=== PATIENT | male | born 1985 | race Caucasian/White ===

== ENCOUNTER 2018-06-06 20:35 | Emergency (ER) | payer SELFPAY ==
[2018-06-06 20:36] VITALS: BP 130/79; PULSE 90; RESP 18; TEMP 36.7; O2SAT 97; BMI 28.8
--- NOTE | 2018-06-06 22:23 | ED.RN ---
LEFT WITHOUT BEING SEEN
== END 2018-06-06 22:00 | disposition left against medical advice (07) ==
LOC: ED 22:31
PROVIDERS: Emergency Provider Emergency Medicine
DX: F11.90 Opioid use, unspecified, uncomplicated (principal)

== ENCOUNTER 2018-06-07 16:41 | Inpatient (IN) | payer MEDICAID, SELFPAY ==
[2018-06-07 16:59] VITALS: BP 130/80; PULSE 81; RESP 16; TEMP 36.7; O2SAT 98
[2018-06-07 17:05] VITALS: BMI 26.2
[2018-06-07 17:07] VITALS: BMI 26.2
[2018-06-07 17:15] VITALS: BP 130/80; PULSE 81; RESP 16; TEMP 36.7
--- NOTE | 2018-06-07 17:32 | HP.PCM_ITS ---
Problem List (1) Heroin withdrawal Status: Acute History of Present Illness Date of Admission: 06/07/18 Chief Complaint: Myalgias, lacrimation, abdominal cramps. The patient is a 32 year old M presenting seeking assistance with opiate withdrawal. Patient's last use of heroin was the 6, in the morning. Patient smokes or free bases heroin. Since his last use, he is been abdominal cramps, diffuse myalgias, yawning, lacrimation, nausea. He has been using heroin for 8 months, never injecting. He is never attempted to quit heroin before. He states that he uses methamphetamines, also smoking, intermittently and yesterday as he was told by someone that would help with his heroin sick. It did not. [] Past Medical History Allergies grass pollen Allergy (Verified 06/07/18 17:05) Other Home Medications: Ambulatory Orders Medication Instructions Recorded NK 06/07/18 Psychiatric History: Anxiety Smoking Status: Current every day smoker Tobacco Use: Cigarettes Alcohol: None Drugs: Cocaine - Rare, Heroin - Daily, Marijuana - Almost daily, - - Rare methamphetamines - *Family History Maternal History Items: - - No medical problems Review of Systems Constitutional: Reports: Chills. Denies: Anorexia, Fever, Night Sweats, Malaise, Weakness Eyes: Denies: Blurred vision, Double vision HEENT: Denies: Head Aches, Sinus Congestion, Sinus Drainage Cardiovascular: Denies: Chest Pain, Palpitations Respiratory: Denies: Cough, Shortness of breath at rest, Sputum production Gastrointestinal: Denies: Abdominal Pain, Nausea, Vomiting Genitourinary: Denies: Dysuria Musculoskeletal: Reports: - - Diffuse myalgias. Denies: Joint Pain, Joint Tenderness Skin: Denies: Rash, Wounds Neurological: Denies: Blurred vision, Double vision, Focal weakness, Numbness, Tingling Psychiatric: Reports: Anxiety. Denies: Depression Hematologic/ Lymphatic: Denies: Easy Bruising, Easy Bleeding, Hx of blood clot Comment: A 10 point review of systems were negative except as mentioned in the history of present illness and the other review of systems. VTE Information - Inpt Only VTE Present on Admission: No VTE Mechan Device Prophylaxis: None VTE Pharm Prophylaxis ordered?: No Reason prophylaxis not ordered:: Treatment Not Indicated Patient Problems: Active and Suspected Problems Heroin withdrawal (Acute) - Physical Exam General: Alert, Cooperative, No apparent distress HEENT: Atraumatic, Normocephalic Oral: Moist Mucosa, No Gingival or Mucosal Lesions/ Ulcerations Neck: No Nodes, Thyroid Normal Size and Texture Lungs: Clear to auscultation, Normal air movement, No rhonchi, Wheezes - Upper respiratory. No stridor Cardiovascular: Regular rate, Regular Rhythm, Normal S1, Normal S2, No murmurs Abdomen: Bowel Sounds Present, Soft, Non Tender, Non-Distended, No Hepato- splenomegaly Extremities: No edema, No Calf Tenderness Skin: No rashes, No breakdown Psych/Mental Status: Normal Affect, Appropriate Vital Signs Temp Pulse Resp BP Pulse Ox 36.7 C 81 16 130/80 H 98 06/07/18 17:15 06/07/18 17:15 06/07/18 17:15 06/07/18 17:15 06/07/18 16:59 Oxygen Delivery Method Room Air Weight: 92.7 kg Body Mass Index (BMI) 26.2 Assessment/Plan All Active Problems Heroin withdrawal (Acute) 1. Acute heroin withdrawal: Patient will be initiated on the medical stabilization protocol with buprenorphine taper. To help patient's other somatic complaints, he will have other medications to help as needed. Patient's discharge will be the , in the morning. Patient has follow-up on the with a long-term addiction program.
[2018-06-07 17:46] LABS: Absolute Lymphocyte Count 3.02 X10^3/ul (0.83-4.51); Absolute Neutrophil Count 4.3 X10^3/uL (2.0-7.7); Basophil# 0.04 X10^3/uL; Basophil% 0.5 % (0-1); Eosinophil# 0.25 X10^3/uL; Eosinophils% 3.1 % (0-5); Hemoglobin 16.8 g/dl (13.0-16.5); Lymphocyte # 3.02 X10^3/ul (4.0); Lymphocyte % 37.4 % (19-41); Mean Corp Hgb Conc 33.6 g/gl (32-36); Mean Corpuscular Hgb 30.7 pg (27.0-32.0); Mean Corpuscular Volume 91.2 fL (80-94); Mean Platelet Vol. 10.1 fl (6.2-12.0); Monocyte% 6.2 % (0-10); Neutrophil # 4.25 X10^3/uL (2.7-7.7); Neutrophil % 52.6 % (47-70); Platelet Count 209 K/mm3 (150-450); RBC Distribution Width CV 12.8 % (11.6-14.6); RBC Distribution Width SD 42.4 fl (35.1-43.9); Red Blood Count 5.48 M/mm3 (4.6-6.2); White Blood Count 8.1 K/mm3 (4.4-11.0)
[2018-06-07] MEDS: Methocarbamol 750 MG Tablet PO (17:48)
[2018-06-07] MEDS: Dicyclomine 10 MG Capsule 20 MG PO (17:48)
[2018-06-07] MEDS: Buprenorphine HCl 2 MG TAB.SUBL 4 MG SL (17:48)
[2018-06-07] MEDS: cloNIDine HCl 0.1 MG Tablet PO (17:48)
[2018-06-07 18:06] LABS: POSITIVE COUNT NO; POSITIVE DIFFERENTIAL NO; POSITIVE MORPHOLOGY NO
[2018-06-07 18:27] LABS: ALB/GLOB Ratio 1.2 RATIO (0.9-2.4); AST(SGOT) 22 U/L (15-37); Alanine Aminotransfer ALT/SGPT 38 U/L (16-61); Albumin, Serum 4.3 g/dL (3.2-5.0); Alkaline Phosphatase 71 U/L (45-117); Anion Gap 6 (5-15); BUN 16 mg/dL (7-18); BUN/Creat Ratio 14.4 RATIO (10-20); Calcium,Total 9.1 mg/dL (8.5-10.1); Chloride 103 mmol/L (98-107); Creatinine, Serum 1.11 mg/dL (0.70-1.30); EST Glomerular Filtration Rate 82 mL/min (>60); Est Glom Filt Rate - Afr Amer 99 mL/min (>60); Estimated Creatinine Clearance 112.11 ml/min; Globulin 3.5 g/dL (2.2-4.2); Glucose 84 mg/dL (74-106); Protein, Total 7.8 g/dL (6.4-8.2); Sodium Level 136 mmol/L (136-145)
[2018-06-07] MEDS: traZODone 50 MG Tablet PO (21:20)
[2018-06-07 22:00] VITALS: BP 110/68; PULSE 65; RESP 16; TEMP 36.7
[2018-06-07 22:17] VITALS: BP 110/68; PULSE 65; RESP 16; TEMP 36.7; O2SAT 98
[2018-06-08 02:00] VITALS: BP 118/65; PULSE 77; RESP 16; TEMP 36.8
[2018-06-08] MEDS: Buprenorphine HCl 2 MG TAB.SUBL 4 MG SL ×2 (02:08→09:48)
[2018-06-08] MEDS: Pramipexole Di-HCl 0.25 MG Tablet PO (02:12)
[2018-06-08] MEDS: cloNIDine HCl 0.1 MG Tablet PO ×2 (02:12→08:06)
[2018-06-08 02:40] LABS: Amphetamine Urine VISTA POSITIVE (<1000 ng/mL); Barbiturate Urine VISTA NEGATIVE (< 200 ng/mL); Benzodiazepine Urine VISTA NEGATIVE (< 200 ng/mL); Cocaine Urine VISTA POSITIVE (< 300 ng/mL); Ecstacy Urine VISTA NEGATIVE (< 500 ng/mL); Methadone Urine VISTA NEGATIVE (< 300 ng/mL); PCP Urine VISTA NEGATIVE (< 25 ng/mL); THC Urine VISTA POSITIVE (< 50 ng/mL); Vista UDS pH Range 5
[2018-06-08 03:12] VITALS: BP 118/65; PULSE 77; RESP 16; TEMP 36.8; O2SAT 98
[2018-06-08 05:42] VITALS: BP 118/65; PULSE 77; RESP 16; TEMP 36.8
[2018-06-08 08:05] VITALS: BP 114/78; PULSE 70; RESP 16; TEMP 36.9
[2018-06-08] MEDS: hydrOXYzine PAM 25 MG Capsule 50 MG PO (08:06)
[2018-06-08] MEDS: Methocarbamol 750 MG Tablet PO (08:06)
--- NOTE | 2018-06-08 11:49 | PN_ITS ---
Patient Problems: Active and Suspected Problems Heroin withdrawal (Acute) Subjective: Pt resting comfortably in bed NAD. Some anxiety and restlessness currently. Had nausea and muscle aches this AM that have resolved. - Physical Exam General: Alert, Oriented x3, Cooperative HEENT: Atraumatic, PERRLA, EOMI, Normocephalic Neck: Supple, No JVD, Negative Carotid Bruits Lungs: Clear to auscultation, Normal air movement Cardiovascular: Regular rate, No murmurs Abdomen: Bowel Sounds Present, Soft, Non Tender Extremities: No edema, Capillary Refill Less than 3 Seconds Skin: No rashes, No breakdown, - - extensive tattoos Musculoskeletal: No Tenderness to Palpation of Joints or Extremities Neurological: Cranial nerves II-XII grossly intact Psych/Mental Status: Normal Affect, Appropriate, Alert and oriented to time, place, person, mood and affect Vital Signs Temp Pulse Resp BP Pulse Ox 98.4 F 70 16 114/78 98 06/08/18 08:05 06/08/18 08:05 06/08/18 08:05 06/08/18 08:05 06/08/18 03:12 Oxygen Delivery Method Room Air Weight: 204 lb 5.896 oz Body Mass Index (BMI) 26.2 Intake and Output for Last 24 Hours 06/06/18 06/07/18 06/08/18 23:59 23:59 23:59 Intake Total 1020 / 1020 Balance 1020 / 1020 Laboratory Tests Past 24 Hrs 06/07/18 06/07/18 06/08/18 17:25 17:25 02:15 WBC 8.1 RBC 5.48 Hgb 16.8 H Hct 50.0 MCV 91.2 MCH 30.7 MCHC 33.6 RDW 12.8 RDW Differential 42.4 Plt Count 209 MPV 10.1 Immature Gran % (Auto) 0.200 Neut % (Auto) 52.6 Lymph % (Auto) 37.4 [place] % (Auto) 6.2 Eos % (Auto) 3.1 Baso % (Auto) 0.5 Absolute Neuts (auto) 4.3 Absolute Lymphs (auto) 3.02 Total Counted Not Reportable Sodium 136 Potassium 5.0 Chloride 103 Carbon Dioxide 27.0 Anion Gap 6 BUN 16 Creatinine 1.11 Estim Creat Clear Calc 112.11 Est GFR (MDRD) Af Amer 99 Est GFR (MDRD) Non-Af 82 BUN/Creatinine Ratio 14.4 Glucose 84 Calcium 9.1 Total Bilirubin 1.20 H AST 22 ALT 38 Alkaline Phosphatase 71 Total Protein 7.8 Albumin 4.3 Globulin 3.5 Albumin/Globulin Ratio 1.2 Urine Opiates Screen POSITIVE H Urine Methadone Screen NEGATIVE Ur Barbiturates Screen NEGATIVE Ur Phencyclidine Scrn NEGATIVE Ur Amphetamines Screen POSITIVE H U Methamphetamin-MDMA NEGATIVE U Benzodiazepines Scrn NEGATIVE Urine Cocaine Screen POSITIVE H U Cannabinoids Screen POSITIVE H Ur Drug Screen Comment Medical Necessity - Tobacco Use Smoking Status: Current every day smoker Tobacco Use: Cigarettes Assessment/Plan All Active Problems Heroin withdrawal (Acute) 1. Acute opiate [id number] an free basis this. Current symptoms include restlessness and anxiety, had muscle cramps and nausea this morning. No diarrhea. Continue withdrawal protocol. 2. Nicotine abuse-declined patch when I offered at this morning. Medical stabilization day 2 of 4. This patient was seen by Jong Greene PA-C under the supervision of Doctor Trujillo.
--- NOTE | 2018-06-08 13:15 | NURSING ---
Patient called his RN in and states he cannot wait any longer here and cannot lay here like this. Pt placed unlit cigarette in mouth after getting dressed and walked off of unit. denied needs. pt signed form and placed in chart.
--- NOTE | 2018-06-09 08:15 | PCM.DC.SUM ---
Discharge Date and Diagnosis Date of Admission: 06/07/18 Date of Discharge: 06/08/18 - Primary Discharge Diagnosis Acute opioid withdrawal nicotine abuse polysubstance abuse amphetamines, cocaine, cannabinoids Hospital Course and Treatment Operations: None Procedures: None Summary of Care Provided: Hospital course: The patient is a 32 year old M with past medical history of nicotine abuse who presented to the medical stabilization program for acute heroin withdrawal. He also has polysubstance abuse testing positive for amphetamines, cocaine, cannabinoids. His withdrawal symptoms including myalgias, lacrimation, abdominal cramps. He reports smoking and freebasing heroin for about 8 months, he denied using IV drugs. He was initiated on the opiate withdrawal protocol admitted to the medical surgical unit. Following morning he appeared comfortable however at some point during the day he left AGAINST MEDICAL ADVICE. He did not complete the program. This patient was seen by Jong Greene PA-C under the supervision of Doctor Trujillo. [] - Physical Exam General: Alert, Oriented x3, Cooperative HEENT: Atraumatic, PERRLA, EOMI, Normocephalic Neck: Supple, No JVD, Negative Carotid Bruits Lungs: Clear to auscultation, Normal air movement Cardiovascular: Regular rate, No murmurs Abdomen: Bowel Sounds Present, Soft, Non Tender Extremities: No edema, Capillary Refill Less than 3 Seconds Skin: No rashes, No breakdown Musculoskeletal: No Tenderness to Palpation of Joints or Extremities Neurological: Cranial nerves II-XII grossly intact Psych/Mental Status: Normal Affect, Appropriate Vital Signs Temp Pulse Resp BP Pulse Ox 98.4 F 70 16 114/78 98 06/08/18 08:05 06/08/18 08:05 06/08/18 08:05 06/08/18 08:05 06/08/18 03:12 Oxygen Delivery Method Room Air Weight: 204 lb 5.896 oz Body Mass Index (BMI) 26.2 Intake and Output for Last 24 Hours 06/07/18 06/08/18 06/09/18 23:59 23:59 23:59 Intake Total 1020 / 1020 Balance 1020 / 1020 Discharge Diet: - - AMA Discharge Activity: - - AMA Home Medications: Medications to take at Discharge NK 06/07/18 Disposition: Against Medical Advice Minutes spent on discharge:: 35 Patient Condition:: Stable Medical Necessity - Tobacco Use Smoking Status: Current every day smoker Tobacco Use: Cigarettes Meaningful Use Info Meaningful Use Diagnoses (Choose all that apply): None applicable
== END 2018-06-08 13:14 | disposition left against medical advice (07) | DRG 770 ==
PROVIDERS: Visit Provider Internal Medicine
DX: F11.23 Opioid dependence with withdrawal (principal); F17.210 Nicotine dependence, cigarettes, uncomplicated; F14.10 Cocaine abuse, uncomplicated; F12.10 Cannabis abuse, uncomplicated; F15.10 Other stimulant abuse, uncomplicated
CPT/HCPCS: 36415; 80053; 80307; 85025; 97802